=== PATIENT | female | born 1975 | race African-American/Black ===

== ENCOUNTER 2016-12-29 10:59 | Emergency (ER) | payer OTHER ==
[2016-12-29 11:07] VITALS: BP 150/64; TEMP 97.9; BMI 39.6
[2016-12-29 12:24] VITALS: PULSE 99
[2016-12-29] MEDS ORDERED: morphine CARPU-JECT 2 MG/1 ML DISP.SYRIN IVPUSH ONE ×2 (12:26→13:19)
[2016-12-29] MEDS ORDERED: SODIUM CHLORIDE 1,000 ML IV STA (12:27)
[2016-12-29] MEDS ORDERED: morphine CARPU-JECT 4 MG/1 ML DISP.SYRIN ONE (12:28)
[2016-12-29 12:32] LABS: BASOPHIL 0.4 % (0-2.0); EOSINOPHIL 0.3 % (0-4.5); MCH 28.1 pg (25.7-33.7); MCHC 32.1 g/dl (32.0-36.0); MEAN CELL VOLUME 87.6 fl (80-96); MEAN PLT VOLUME 9.4 fl (7.5-11.1); NEUTROPHILS 64.2 % (42.8-82.8); PLATELET COUNT 236 K/MM3 (134-434); RDW 17.4 % (11.6-15.6); WHITE BLOOD COUNT 9.2 K/mm3 (4.0-10.0)
--- NOTE | 2016-12-29 12:35 | PDOC ---
History of Present Illness - General Chief Complaint: Pain Stated Complaint: ABD PAIN Time Seen by Provider: 12/29/16 11:29 History Source: Patient Exam Limitations: No Limitations - History of Present Illness Travel History: No Initial Comments: 12/29/16 12:30 41-year-old female with no past medical history presents the ED with complaints of suprapubic pain for the past 2 days associated with vaginal bleeding with large clots. Patient states history of fibroids a few years ago requiring embolization but has not had any problems since. Patient states the past 5 months has been having vaginal spotting with no abdominal pain. Patient denies fever, chills, nausea, dizziness, shortness of breath on exertion, or edema. Timing/Duration: reports: getting worse Quality: reports: moderate, cramping Abdominal Pain Onset Location: reports: suprapubic Pain Radiation: reports: no radiation Activities at Onset: reports: none Aggravating Factors: improves with: None Alleviating Factors: improves with: None Past History - Past Medical History Allergies/Adverse Reactions: Allergies Allergy/AdvReac Type Severity Reaction Status Date / Time No Known Allergies Allergy Verified 12/29/16 11:07 Home Medications: Ambulatory Orders Cyclobenzaprine HCl [Flexeril -] 10 mg PO PRN 09/02/16 Metronidazole [Flagyl -] 500 mg PO DAILY #14 tablet 09/02/16 Oxycodone HCl/Acetaminophen [Percocet 5-325 mg Tablet] 1 - 2 tab PO Q6H PRN #12 tab MDD 4 12/29/16 Diabetes: Yes (BORDERLINE) - Surgical History Orthopedic Surgery: Yes (arthroscopy x3 brian knee and shoulder) - Reproductive History LMP Normal: No Is Patient Now?: No Therapeutic (s) & number: No - Immunization History Td Vaccination: (unknown) Immunization Up to Date: Yes - Psycho/Social/Smoking Cessation Hx Anxiety: No Suicidal Ideation: No Smoking Status: Yes Smoking History: Current some day smoker Years of Tobacco Use: 0 Have you smoked in the past 12 months: Yes Number of Cigarettes Smoked Daily: 2 Cigars Per Day: 0 Information on smoking cessation initiated: No 'Breaking Loose' booklet given: 07/20/16 Hx Alcohol Use: Yes (SOCIAL) Drug/Substance Use Hx: No Substance Use Type: None Hx Substance Use Treatment: No Patient Lives Alone: No Lives with/in: spouse/SO Review of Systems - Review of Systems Constitutional: No: Symptoms Reported HEENTM: No: Symptoms Reported Respiratory: No: Symptoms reported ABD/GI: Yes: Abdominal cramping : Yes: Discharge Musculoskeletal: No: Symptoms Reported Integumentary: No: Symptoms Reported Neurological: No: Symptoms reported Endocrine: No: Symptoms Reported Hematologic/Lymphatic: No: Symptoms Reported *Physical Exam - Vital Signs Last Vital Signs Temp Pulse Resp BP Pulse Ox 97.9 F 99 H 18 150/64 98 12/29/16 11:04 12/29/16 12:23 12/29/16 11:04 12/29/16 11:04 12/29/16 11:04 - Physical Exam General Appearance: Yes: Nourished, Appropriately Dressed. No: Apparent Distress HEENT: positive: EOMI, CRISS. negative: Pale Conjunctivae Neck: positive: Normal Thyroid, Supple Respiratory/Chest: positive: Lungs Clear, Normal Breath Sounds. negative: Respiratory Distress Cardiovascular: positive: Regular Rhythm, Regular Rate (99). negative: Murmur Female Pelvic Exam: positive: cervical os closed, vaginal bleeding (bright red blood with small clots). negative: adnexal tenderness Gastrointestinal/Abdominal: positive: Normal Bowel Sounds, Soft, Guarding (mild) , Tenderness (mid suprapubic). negative: Rebound Musculoskeletal: negative: CVA Tenderness Extremity: positive: Normal Capillary Refill. negative: Pedal Edema Integumentary: positive: Normal Color, Warm, Moist. negative: Pale Neurologic: positive: Motor Strength 5/5 (ambulatory) ED Treatment Course - LABORATORY CBC & Chemistry Diagram: 12/29/16 12:20 12/29/16 12:20 - RADIOLOGY Radiology Studies Ordered: Category Date Time Status PELVIC / BLADDER US [US] Stat Ultrasound 12/29/16 12:27 Ordered TRANSVAGINAL ULTRASOUND US [US] Stat Ultrasound 12/29/16 12:27 Ordered Medical Decision Making - Medical Decision Making 12/29/16 12:34 Patient with history of uterine fibroids presents with severe abdominal cramping associated large clots and bright red blood. Patient exam did have bright red blood with small clots. Patient had no CMT os closed. Patient with mild guarding to the mid suprapubic region. Patient ordered for urine, labs, ultrasound, analgesics, IV fluids IV access. 12/29/16 14:29 Laboratory Tests 12/29/16 12/29/16 12/29/16 12:20 12:20 12:20 WBC 9.2 Hgb 11.6 D Hct 36.3 D Neutrophils % 64.2 Sodium 142 Potassium 3.7 Chloride 105 Carbon Dioxide 26 Anion Gap 11 BUN 14 D Creatinine 0.6 Creat Clearance w eGFR > 60 Random Glucose 216 H D Calcium 9.2 Total Bilirubin 0.2 AST 9 L ALT 24 Serum , Qual Negative 12/29/16 14:30 Urine pending. Patient feeling better after receiving morphine. Ultrasound shows a fibroid uterus with thickened endometrium and a small right ovarian cyst. The largest fibroids measuring 2.8 x 1.7 x 2.6. The endometrial thickness is 13 mm. Patient will be discharged home with Percocet and told to follow-up with her COMMUNITY SUPPORT PROFESSIONAL. 12/29/16 14:42 Laboratory Tests 12/29/16 12:11 Urine Ketones Trace H Urine Blood 3+ H Urine Nitrite Negative Ur Leukocyte Esterase Negative *DC/Admit/Observation/Transfer Diagnosis at time of Disposition: Fibroids Qualifiers: Uterine leiomyoma location: intramural Qualified Code(s): D25.1 - Intramural leiomyoma of uterus - Discharge Dispostion Disposition: HOME Condition at time of disposition: Good - Prescriptions Prescriptions: Oxycodone HCl/Acetaminophen [Percocet 5-325 mg Tablet] 1 - 2 tab PO Q6H PRN #12 tab MDD 4 PRN Reason: Pain - Patient Instructions Printed Discharge Instructions: DI for Uterine Fibroids Additional Instructions: You need to follow-up with her COMMUNITY SUPPORT PROFESSIONAL to discuss today's visit which showed fibroids and a thickened endometrium. I will discharge you home with Percocet
[2016-12-29 12:56] LABS: ALBUMIN 3.6 g/dl (3.4-5.0); ANION GAP 11 (8-16); BILIRUBIN,TOTAL 0.2 mg/dL (0.2-1.0); CALCIUM 9.2 mg/dL (8.5-10.1); CO2 26 mmol/L (21-32); CREATININE 0.6 mg/dL (0.55-1.02); GLUCOSE,RANDOM 216 mg/dL (74-106); SGOT/AST 9 U/L (15-37); SGPT/ALT 24 U/L (12-78)
[2016-12-29 12:57] LABS: ALK PHOS 79 U/L (45-117)
[2016-12-29] MEDS ORDERED: morphine CARPU-JECT 2 MG/1 ML DISP.SYRIN ONE (13:20)
--- NOTE | 2016-12-29 13:29 | PDOC ---
*Physical Exam - Vital Signs Last Vital Signs Temp Pulse Resp BP Pulse Ox 97.9 F 99 H 18 150/64 98 12/29/16 11:04 12/29/16 12:23 12/29/16 11:04 12/29/16 11:04 12/29/16 11:04 ED Treatment Course - LABORATORY CBC & Chemistry Diagram: 12/29/16 12:20 12/29/16 12:20 - ADDITIONAL ORDERS Additional order review: Laboratory Results 12/29/16 12/29/16 12:20 12:20 Sodium 142 Potassium 3.7 Chloride 105 Carbon Dioxide 26 Anion Gap 11 BUN 14 D Creatinine 0.6 Creat Clearance w eGFR > 60 Random Glucose 216 H D Calcium 9.2 Total Bilirubin 0.2 AST 9 L ALT 24 Alkaline Phosphatase 79 Total Protein 7.0 Albumin 3.6 Serum , Qual Negative 12/29/16 12:20 RBC 4.14 D MCV 87.6 MCHC 32.1 RDW 17.4 H MPV 9.4 Neutrophils % 64.2 Lymphocytes % 30.2 D Monocytes % 4.9 Eosinophils % 0.3 D Basophils % 0.4 - Medications Given in the ED: ED Medications Discontinued Medications Generic Name Dose Route Start Last Admin Trade Name Freq PRN Reason Stop Dose Admin Sodium Chloride 1,000 mls @ 1,000 mls/hr 12/29/16 12:27 12/29/16 12:32 Normal Saline - IV 12/29/16 13:26 1,000 mls/hr ASDIR STA Administration Morphine Sulfate 4 mg 12/29/16 12:26 12/29/16 12:32 Morphine Injection - IVPUSH 12/29/16 12:27 4 mg ONCE ONE Administration Morphine Sulfate 2 mg 12/29/16 13:19 12/29/16 13:23 Morphine Injection - IVPUSH 12/29/16 13:20 2 mg ONCE ONE Administration Medical Decision Making - Medical Decision Making 12/29/16 13:29 41 yo F presenting to the ER s/p abdominal pain and vaginal bleeding Not Not anemic Pt seen by Midlevel Provider under my direct supervision I agree with plan as outlined by Midlevel Provider *DC/Admit/Observation/Transfer Diagnosis at time of Disposition: Fibroids - Discharge Dispostion Disposition: HOME Condition at time of disposition: Good - Prescriptions Prescriptions: Oxycodone HCl/Acetaminophen [Percocet 5-325 mg Tablet] 1 - 2 tab PO Q6H PRN #12 tab MDD 4 PRN Reason: Pain - Patient Instructions Printed Discharge Instructions: DI for Uterine Fibroids Additional Instructions: You need to follow-up with her LIFE SKILLS EDUCATOR to discuss today's visit which showed fibroids and a thickened endometrium. I will discharge you home with Percocet
[2016-12-29 14:29] LABS: URINE APPEARANCE TURBID; URINE BILIRUBIN NEGATIVE (NEGATIVE); URINE GLUCOSE (UA) 1+ (NEGATIVE); URINE KETONE TRACE (NEGATIVE); URINE LEUK ESTERASE NEGATIVE (NEGATIVE); URINE NITRITE NEGATIVE (NEGATIVE); URINE UROBILINOGEN NEGATIVE E.U./dl (0.2-1.0)
[2016-12-29 14:37] LABS: URINE BLOOD 3+ (NEGATIVE); URINE COLOR RED; URINE PROTEIN 2+ (NEGATIVE)
[2016-12-29 14:47] LABS: URINE RBC TOO MANY TO COUNT /hpf (0-3)
== END 2016-12-29 14:50 | disposition home or self-care (01) ==
LOC: JER 10:59
PROC: 3E033NZ Introduction of Analgesics, Hypnotics, Sedatives into Peripheral Vein, Percutaneous Approach (ICD-10-PCS; principal; 2016-12-29)
DX: D25.1 Intramural leiomyoma of uterus (principal); N83.291 Other ovarian cyst, right side; E11.9 Type 2 diabetes mellitus without complications; F17.210 Nicotine dependence, cigarettes, uncomplicated
CPT/HCPCS: 36415; 76830-TC; 76856-TC; 80053; 81003; 81015; 84703; 85025; 96374; 96376; 99283-25

== ENCOUNTER 2018-06-29 06:58 | Emergency (ER) | payer SELFPAY ==
[2018-06-29 07:40] VITALS: BP 130/89; PULSE 78; TEMP 97.7; BMI 33.6
--- NOTE | 2018-06-29 08:34 | PDOC ---
History of Present Illness - General Chief Complaint: Burn Stated Complaint: L FOOT BURN Time Seen by Provider: 06/29/18 08:28 History Source: Patient Exam Limitations: Clinical Condition - History of Present Illness Initial Comments: 06/29/18 08:29 Patient with no sig Past medical history presenting for evaluation status post spell and how water on the top of left foot this morning. Patient also requests HIV testing. Denies exposure to any blood products or HIV. Denies any other symptoms 06/29/18 08:32 Timing/Duration: 4-6 hours Past History - Past Medical History Allergies/Adverse Reactions: Allergies Allergy/AdvReac Type Severity Reaction Status Date / Time No Known Allergies Allergy Verified 06/29/18 07:37 Home Medications: Ambulatory Orders Ibuprofen 600 mg PO Q8H PRN #12 tablet 06/29/18 Silver Sulfadiazine [Silvadene] 1 applic TP BID PRN #1 cream..g. 06/29/18 COPD: No Diabetes: Yes (BORDERLINE) - Surgical History Orthopedic Surgery: Yes (arthroscopy x3 brian knee and shoulder) - Reproductive History Therapeutic (s) & number: No - Immunization History Td Vaccination: (unknown) Immunization Up to Date: Yes - Suicide/Smoking/Psychosocial Hx Smoking Status: Yes Smoking History: Current some day smoker Years of Tobacco Use: 0 Have you smoked in the past 12 months: Yes Number of Cigarettes Smoked Daily: 2 Cigars Per Day: 0 Information on smoking cessation initiated: No 'Breaking Loose' booklet given: 07/20/16 Hx Alcohol Use: Yes (SOCIAL) Drug/Substance Use Hx: No Substance Use Type: None Hx Substance Use Treatment: No Review of Systems - Review of Systems Able to Perform ROS?: Yes Is the patient limited Uzbek proficient: No Constitutional: No: Chills, Diaphoresis, Fever, Loss of Appetite, Malaise, Night Sweats, Weakness, Weight Stable, Unintentional Wgt. Loss, Unexplained wgt Loss, Other HEENTM: No: Eye Pain, Blurred Vision, Tearing, Recent change in vision, Double Vision, Cataracts, Ear Pain, Ocular Prothesis, Ear Discharge, Nose Pain, Nose Congestion, Tinnitus, Nose Bleeding, Hearing Loss, Throat Pain, Throat Swelling , Mouth Pain, Dental Problems, Difficulty Swallowing, Mouth Swelling, Other Respiratory: No: Cough, Orthopnea, Shortness of Breath, SOB with Exertion, SOB at Rest, Stridor, Wheezing, Productive cough, Hemoptysis, Other Cardiac (ROS): No: Chest Pain, Edema, Irregular Heart Rate, Lightheadedness, Palpitations, Syncope, Chest Tightness, Other ABD/GI: No: Abdominal Distended, Abd. Pain w/ defecation, Blood Streaked Bowels , Constipated, Diarrhea, Difficulty Swallowing, Nausea, Poor Appetite, Poor Fluid Intake, Rectal Bleeding, Vomiting, Indigestion, Abdominal cramping, Tarry Stools, Other Musculoskeletal: No: Back Pain, Gout, Joint Pain, Joint Swelling, Muscle Pain, Muscle Weakness, Neck Pain, Joint Stiffness, Other Integumentary: Yes: Erythema (left foot) All Other Systems: Reviewed and Negative *Physical Exam - Vital Signs Last Vital Signs Temp Pulse Resp BP Pulse Ox 97.7 F 78 18 130/89 100 06/29/18 07:38 06/29/18 07:38 06/29/18 07:38 06/29/18 07:38 06/29/18 07:38 - Physical Exam Comments: 06/29/18 08:32 GENERAL: Well developed, well nourished. Awake and alert. No acute distress. HEENT: Normocephalic, atraumatic. PERRLA, EOMI. No conjunctival pallor. Sclera are non- icteric. Moist mucous membranes. Oropharynx is clear. NECK: Supple. Full ROM. No JVD. Carotid pulses 2+ and symmetric, without bruits. No thyromegaly. No lymphadenopathy. CARDIOVASCULAR: Regular rate and rhythm. No murmurs, rubs, or gallops. Distal pulses are 2+ and symmetric. PULMONARY: No evidence of respiratory distress. Lungs clear to auscultation bilaterally. No wheezing, rales or rhonchi. ABDOMINAL: Soft. Non-tender. Non-distended. No rebound or guarding. No organomegaly. Normoactive bowel sounds. MUSCULOSKELETAL Normal range of motion at all joints. No bony deformities or tenderness. No CVA tenderness. EXTREMITIES: No cyanosis. No clubbing. No edema. No calf tenderness. SKIN: Warm and dry. Normal capillary refill. No rashes. No jaundice. NEUROLOGICAL: Alert, awake, appropriate. Cranial nerves 2-12 intact. No deficits to light touch and temperature in face, upper extremities and lower extremities. No motor deficits in the in face, upper extremities and lower extremities. Normoreflexic in the upper and lower extremities. Normal speech. Toes are down- going bilaterally. Gait is normal without ataxia. PSYCHIATRIC: Cooperative. Good eye contact. Appropriate mood and affect. General Appearance: Yes: Nourished, Appropriately Dressed. No: Apparent Distress Medical Decision Making - Medical Decision Making 06/29/18 08:32 Patient with no sig Past medical history presenting for evaluation s/p water burn to left foot since this morning. Exam of the foot shows no evidence of burn to the foot. Mild small area of erythema on dorsum of right foot. No pain wound or blisters. Patient also requested hiv testing. HIV labs ordered. Patient was discharged home on Silvadene cream for burn *DC/Admit/Observation/Transfer Diagnosis at time of Disposition: Encounter for HIV (human immunodeficiency virus) test First degree burn of left foot Qualifiers: Encounter type: initial encounter Qualified Code(s): T25.122A - Burn of first degree of left foot, initial encounter - Discharge Dispostion Disposition: HOME Condition at time of disposition: Stable Decision to Admit order: No - Prescriptions Prescriptions: Ibuprofen 600 mg PO Q8H PRN #12 tablet PRN Reason: pain Silver Sulfadiazine [Silvadene] 1 applic TP BID PRN #1 cream..g. PRN Reason: burn - Referrals Referrals: Ho Alba MD [Non Staff, Medical] - - Patient Instructions Printed Discharge Instructions: How to Take Care of a Burn - Post Discharge Activity
== END 2018-06-29 10:52 | disposition home or self-care (01) ==
LOC: JERFT 06:58 → JER 06:58 → JERFT 10:45
PROC: 2W2TX4Z Dressing of Left Foot using Bandage (ICD-10-PCS; principal; 2018-06-29)
DX: T25.122A Burn of first degree of left foot, initial encounter (principal); T31.0 Burns involving less than 10% of body surface; X11.8XXA Contact with other hot tap-water, initial encounter; Y93.89 Activity, other specified; Y92.512 Supermarket, store or market as the place of occurrence of the external cause; Y99.0 Civilian activity done for income or pay
CPT/HCPCS: 36415; 87389; 99281-25

== ENCOUNTER 2018-07-11 10:51 | Emergency (ER) | payer SELFPAY ==
[2018-07-11 10:58] VITALS: BP 127/76; PULSE 94; TEMP 100; BMI 29.2
--- NOTE | 2018-07-11 11:41 | PDOC ---
Attending Attestation - HPI HPI: The patient is a 42 year old female with PMHx of HTN, diabetes, prior uterine fibroid embolization, prior UTIs, who presents with 5 days of flu-like symptoms. Patient complains of fever, chills, nausea, vomiting, and diarrhea. She states that her symptoms subsided on Wednesday and came back today around 3 am. She is currently complaining of mainly chills and right sided flank pain. She states that this flank pain feels similar to her last UTI. Denies any dysuria or hematuria. PCP: Nalini Moser <Shala Balderas - Last Filed: 07/11/18 12:13> - Resident Resident Name: Gianluca Ordaz - ED Attending Attestation I have performed the following: I have examined & evaluated the patient, The case was reviewed & discussed with the resident, I agree w/resident's findings & plan, Exceptions are as noted - Physicial Exam PE: 07/11/18 15:51 Vitals: Triage Vital signs reviewed General Appearance: no acute distress, well nourished well developed, Head: Atraumatic, Neck: Supple;No Nucal rigidity Chest Wall: Nontender Cardiac: Regular rate and rhythym, no murmurs, no rubs, no gallops, Lungs: Clear to auscultation bilateral, good air movement bilaterally, Abdomen: Soft, non distended, normal bowel sounds, non tender to palpation Musculoskeletal: Mild right CVA tenderness to palpation Extremities: Full range of motion to all extremities, no cyanosis, clubbing, or edema Skin: Warm and dry, no rashes or lesions, no rash, no petechiae Psych: normal mood, normal affect - Medical Decision Making 07/11/18 15:54 42 years old past medical history significant for hypertension diabetes presents to the ED with 5 day history of flulike symptoms fever chills nausea vomiting diarrhea symptoms then improved on Wednesday and yesterday she began complaining of right-sided flank discomfort and dysuria Her urinalysis was positive, her laboratory analysis was otherwise unremarkable we will treat her with a 14 day course of Keflex for possible early pyelo Findings, need for follow-up and strict return instructions discussed with patient. <Pedro Vasquez - Last Filed: 07/11/18 15:55> Heart Score/ECG Review - ECG Impressions Comment:: 07/11/18 15:54 EKG performed at 1225 demonstrates normal sinus rhythm no ST elevations T-wave inversions. Interpreted by me. <Pedro Vasquez - Last Filed: 07/11/18 15:55>
[2018-07-11] MEDS ORDERED: ACETAMINOPHEN 1000 MG/100 ML VIAL (NON FORMULARY) IVPB ONE (11:45)
[2018-07-11] MEDS ORDERED: SODIUM CHLORIDE 0.9% 500 ML INFUS.BAG IV ONE (11:45)
[2018-07-11] MEDS ORDERED: ACETAMINOPHEN INJECTION 100 ML IVPB ONE (11:53)
[2018-07-11 12:13] LABS: BASO % 0.2 % (0-2.0); EOS % 0.4 % (0-4.5); HEMATOCRIT 31.9 % (32.4-45.2); HEMOGLOBIN 10.4 GM/dL (10.7-15.3); LYMPH % 15.1 % (8-40); MCH 27.3 pg (25.7-33.7); MCHC 32.6 g/dl (32.0-36.0); MEAN PLT VOLUME 9.5 fl (7.5-11.1); MONO % 6.3 % (3.8-10.2); PLATELET COUNT 250 K/MM3 (134-434); RDW 16.5 % (11.6-15.6)
[2018-07-11 12:41] LABS: ALBUMIN 3.3 g/dl (3.4-5.0); ALK PHOS 64 U/L (45-117); ANION GAP 10 MMOL/L (8-16); BLOOD UREA NITROGEN 10 mg/dL (7-18); CALCIUM 8.6 mg/dL (8.5-10.1); CHLORIDE 103 mmol/L (98-107); CO2 31 mmol/L (21-32); CREATININE 0.6 mg/dL (0.55-1.3); GLUCOSE,RANDOM 110 mg/dL (74-106); POTASSIUM 3.4 mmol/L (3.5-5.1); SGOT/AST 13 U/L (15-37); SGPT/ALT 25 U/L (13-61); SODIUM 144 mmol/L (136-145)
[2018-07-11 12:42] LABS: BILIRUBIN,TOTAL 0.4 mg/dL (0.2-1.0); TOT PROT 7.2 g/dl (6.4-8.2)
[2018-07-11 13:31] LABS: URINE APPEARANCE SLCLOUDY; URINE BILIRUBIN NEGATIVE (<2.0 mg/dL); URINE COLOR YELLOW; URINE GLUCOSE (UA) NEGATIVE (NEGATIVE); URINE KETONE NEGATIVE (NEGATIVE); URINE LEUK ESTERASE TRACE (NEGATIVE); URINE NITRITE POSITIVE (NEGATIVE); URINE UROBILINOGEN NEGATIVE mg/dL (0.2-1.0)
[2018-07-11 13:32] LABS: URINE PROTEIN 1+ (NEGATIVE)
[2018-07-11 13:37] LABS: EPI CELLS MODERATE /HPF (FEW); URINE BACTERIA RARE /hpf (NONE SEEN); URINE MUCUS RARE
[2018-07-11] MEDS ORDERED: KETOROLAC TROMETHAMINE 30 MG/1 ML VIAL IVPUSH ONE (13:49)
--- NOTE | 2018-07-11 14:22 | PDOC ---
History of Present Illness - General Chief Complaint: Respiratory Stated Complaint: FLU LIKE SYPTOMS Time Seen by Provider: 07/11/18 11:37 - History of Present Illness Initial Comments: The patient is a 42F w/ a history of pyelonephritis who presents with 5 days of fevers/chills, myalgias, as well as V. The patient reports she last vomited on . She states he symptoms worsened through Wednesday. Then got better on Wednesday and then recurred today. She states she also has related R flank pain. Denies dysuria and hematuria. The patient reports similar symptoms in the pas when she had pyelonephritis Denies GARVIN, vision changes, chest pain, SOB, abdominal pain, changes in urination or BMs. 07/11/18 14:19 Past History - Past Medical History Allergies/Adverse Reactions: Allergies Allergy/AdvReac Type Severity Reaction Status Date / Time No Known Allergies Allergy Verified 07/11/18 10:55 Home Medications: Ambulatory Orders Ibuprofen 600 mg PO Q8H PRN #12 tablet 06/29/18 Silver Sulfadiazine [Silvadene] 1 applic TP BID PRN #1 cream..g. 06/29/18 Cephalexin Monohydrate [Keflex -] 500 mg PO TID 14 Days #42 capsule 07/11/18 COPD: No Diabetes: Yes (BORDERLINE) - Surgical History Orthopedic Surgery: Yes (arthroscopy x3 brian knee and shoulder) - Reproductive History Therapeutic (s) & number: No - Immunization History Td Vaccination: (unknown) Immunization Up to Date: Yes - Suicide/Smoking/Psychosocial Hx Smoking Status: Yes Smoking History: Current some day smoker Years of Tobacco Use: 0 Have you smoked in the past 12 months: Yes Number of Cigarettes Smoked Daily: 5 Cigars Per Day: 0 Information on smoking cessation initiated: Yes 'Breaking Loose' booklet given: 07/11/18 Hx Alcohol Use: No Drug/Substance Use Hx: No Substance Use Type: None Hx Substance Use Treatment: No *Physical Exam - Vital Signs Last Vital Signs Temp Pulse Resp BP Pulse Ox 100 F H 94 H 20 127/76 99 07/11/18 10:55 07/11/18 10:55 07/11/18 10:55 07/11/18 10:55 07/11/18 11:44 ED Treatment Course - LABORATORY CBC & Chemistry Diagram: 07/11/18 11:55 07/11/18 11:55 - ADDITIONAL ORDERS Additional order review: Laboratory Results 07/11/18 07/11/18 07/11/18 13:18 13:18 11:55 Sodium Potassium Chloride Carbon Dioxide Anion Gap BUN Creatinine Creat Clearance w eGFR Random Glucose Lactic Acid 0.5 Calcium Total Bilirubin AST ALT Alkaline Phosphatase Total Protein Albumin Urine Color Yellow Urine Appearance Slcloudy Urine pH 6.0 Ur Specific [place] 1.019 Urine Protein 1+ H Urine Glucose (UA) Negative Urine Ketones Negative Urine Blood 1+ H Urine Nitrite Positive Urine Bilirubin Negative Urine Urobilinogen Negative Ur Leukocyte Esterase Trace Urine WBC (Auto) 32 Urine RBC (Auto) 5 Ur Epithelial Cells Moderate Urine Bacteria Rare Urine Mucus Rare Urine HCG, Qual Negative 07/11/18 11:55 Sodium 144 Potassium 3.4 L Chloride 103 Carbon Dioxide 31 Anion Gap 10 BUN 10 Creatinine 0.6 Creat Clearance w eGFR > 60 Random Glucose 110 H Lactic Acid Calcium 8.6 Total Bilirubin 0.4 AST 13 L ALT 25 Alkaline Phosphatase 64 Total Protein 7.2 Albumin 3.3 L Urine Color Urine Appearance Urine pH Ur Specific [place] Urine Protein Urine Glucose (UA) Urine Ketones Urine Blood Urine Nitrite Urine Bilirubin Urine Urobilinogen Ur Leukocyte Esterase Urine WBC (Auto) Urine RBC (Auto) Ur Epithelial Cells Urine Bacteria Urine Mucus Urine HCG, Qual 07/11/18 11:55 RBC 3.80 MCV 84.0 MCHC 32.6 RDW 16.5 H MPV 9.5 Neutrophils % 78.0 D Lymphocytes % 15.1 D Monocytes % 6.3 Eosinophils % 0.4 Basophils % 0.2 - RADIOLOGY Radiology Studies Ordered: Category Date Time Status CHEST X-RAY PORTABLE* [RAD] Stat Radiology 07/11/18 11:43 Completed - Medications Given in the ED: ED Medications Discontinued Medications Generic Name Dose Route Start Last Admin Trade Name Freq PRN Reason Stop Dose Admin Acetaminophen 1,000 mg 07/11/18 11:45 07/11/18 12:17 Ofirmev Injection - IVPB 07/11/18 11:46 1,000 mg ONCE ONE Administration Sodium Chloride 1,000 ml 07/11/18 11:45 07/11/18 12:16 Normal Saline - IV 07/11/18 11:46 1,000 ml ONCE ONE Administration Medical Decision Making - Medical Decision Making Patient with UA concerning for UTI No leukocytosis 07/11/18 14:22 *DC/Admit/Observation/Transfer Diagnosis at time of Disposition: UTI (urinary tract infection) Qualifiers: Urinary tract infection type: acute cystitis Hematuria presence: without hematuria Qualified Code(s): N30.00 - Acute cystitis without hematuria - Discharge Dispostion Disposition: HOME Condition at time of disposition: Improved Decision to Admit order: No - Referrals Referrals: Nalini Moser MD [Primary Care Provider] - - Patient Instructions Printed Discharge Instructions: DI for Urinary Tract Infection (UTI) Additional Instructions: You were seen in the Emergency Department for a Urinary Tract infection. You were sent an antibiotic to your pharmacy that you specified. Please take as directed. Please review the handouts provided at discharge. Please follow up with your primary care physician within the next 1-3 days. Return to the Emergency Department if you develop fevers, worsening symptoms, or new concerning symptoms. - Post Discharge Activity Forms/Work/School Notes: Back to Work
--- NOTE | 2018-07-11 14:26 | EKG ---
Test Reason : Blood Pressure : / mmHG Vent. Rate : 087 BPM Atrial Rate : 087 BPM P-R Int : 178 ms QRS Dur : 080 ms QT Int : 368 ms P-R-T Axes : 038 059 030 degrees QTc Int : 442 ms NORMAL SINUS RHYTHM NORMAL ECG NO PREVIOUS ECGS AVAILABLE Confirmed by ALEX HERCULES MD ([id number]) on 07/11/2018 2:26:21 PM Referred By: Confirmed By:ALEX HERCULES MD
[2018-07-11] MEDS ORDERED: KETOROLAC TROMETHAMINE 30 MG/1 ML VIAL ONE (14:48)
== END 2018-07-11 15:05 | disposition home or self-care (01) ==
LOC: JER 10:51
PROC: 3E0337Z Introduction of Electrolytic and Water Balance Substance into Peripheral Vein, Percutaneous Approach (ICD-10-PCS; principal; 2018-07-11)
PROC: 3E033NZ Introduction of Analgesics, Hypnotics, Sedatives into Peripheral Vein, Percutaneous Approach (ICD-10-PCS; 2018-07-11)
DX: N30.00 Acute cystitis without hematuria (principal); R73.03 Prediabetes; F17.210 Nicotine dependence, cigarettes, uncomplicated
CPT/HCPCS: 36415; 71045-TC-FY; 80053; 81003; 81015; 83605; 84703; 85025; 87086; 87186; 93005; 93010; 99283-25; J0131

== ENCOUNTER 2023-12-23 09:37 | Emergency (ER) | payer OTHER ==
[2023-12-23 09:51] VITALS: BMI 41.0
[2023-12-23] MEDS ORDERED: ACETAMINOPHEN INJECTION 100 ML IVPB ONE (10:12)
[2023-12-23] MEDS: ACETAMINOPHEN 1000 MG/100 ML BAG IVPB ONE (10:41)
[2023-12-23] MEDS: SODIUM CHLORIDE 1,000 ML IV STA (10:41)
[2023-12-23] MEDS ORDERED: morphine SULFATE 4 MG/ML VIAL ONE (10:46)
[2023-12-23] MEDS: morphine CARPU-JECT 4 MG/1 ML DISP.SYRIN IVPUSH ONE (10:48)
[2023-12-23 10:53] LABS: BASO % 0.7 % (0-2.0); EOS % 1.5 % (0-4.5); HEMATOCRIT 38.5 % (32.4-45.2); HEMOGLOBIN 12.3 GM/dL (10.7-15.3); LYMPH % 29.1 % (8-40); MCH 27.2 pg (25.7-33.7); MEAN CELL VOLUME 84.9 fl (80-96); MEAN PLT VOLUME 10.3 fl (7.5-11.1); MONO % 7.1 % (3.8-10.2); NEUT % 61.6 % (42.8-82.8); PLATELET COUNT 161 10^3/uL (134-434); RBC 4.53 M/mm3 (3.60-5.2); RDW 16.7 % (11.6-15.6); WHITE BLOOD COUNT 5.9 K/mm3 (4.0-10.0)
[2023-12-23 11:12] LABS: POTASSIUM 3.3 mmol/L (3.5-5.1)
[2023-12-23 11:15] LABS: ALBUMIN 3.7 g/dl (3.4-5.0); CALCIUM 9.5 mg/dL (8.5-10.1)
[2023-12-23 11:16] LABS: BLOOD UREA NITROGEN 16.7 mg/dL (7-18); MAGNESIUM 1.6 mg/dL (1.8-2.4)
[2023-12-23 11:18] LABS: BILIRUBIN,DIRECT 0.2 mg/dL (0.0-0.2); CREATININE 0.7 mg/dL (0.55-1.3)
[2023-12-23 11:20] LABS: BILIRUBIN,TOTAL 0.8 mg/dL (0.2-1); TOT PROT 7.7 g/dl (6.4-8.2)
[2023-12-23] MEDS ORDERED: POTASSIUM CHLORIDE ORAL LIQUID 20 MEQ/15 ML ONE (15:01)
[2023-12-23] MEDS ORDERED: MAGNESIUM SULFATE IN WATER 2 GM/50 ML IVPB IVPB ONE (15:02)
[2023-12-23] MEDS: POTASSIUM CHLORIDE ORAL LIQUID 20 MEQ/15 ML PO ONE (15:09)
[2023-12-23 15:16] LABS: PH,URINE 5.5 (5.0-8.0); URINE APPEARANCE CLOUDY; URINE BILIRUBIN NEGATIVE (NEGATIVE); URINE COLOR YELLOW; URINE GLUCOSE (UA) NEGATIVE (NEGATIVE); URINE KETONE NEGATIVE (NEGATIVE); URINE LEUK ESTERASE NEGATIVE (NEGATIVE); URINE NITRITE NEGATIVE (NEGATIVE); URINE PROTEIN NEGATIVE (NEGATIVE)
[2023-12-23 15:28] VITALS: BP 113/76; PULSE 83; RESP 20; TEMP 98
[2023-12-23] MEDS: MAGNESIUM SULF 50% (8.12 MEQ/2 ML-1 GM VIAL) IVPB ONE (15:34)
[2023-12-23] MEDS: POTASSIUM CHLORIDE TABS 20 MEQ TABLET.ER (FP) PO ONE (15:34)
[2023-12-23] MEDS: MAGNESIUM OXIDE 400 MG TABLET (FP) PO ONE (15:35)
== END 2023-12-23 15:35 | disposition home or self-care (01) ==
LOC: JER 09:37
PROC: 3E033NZ Introduction of Analgesics, Hypnotics, Sedatives into Peripheral Vein, Percutaneous Approach (ICD-10-PCS; principal; 2023-12-23)
PROC: 3E033GC Introduction of Other Therapeutic Substance into Peripheral Vein, Percutaneous Approach (ICD-10-PCS; 2023-12-23)
PROC: 3E0337Z Introduction of Electrolytic and Water Balance Substance into Peripheral Vein, Percutaneous Approach (ICD-10-PCS; 2023-12-23)
DX: R10.31 Right lower quadrant pain (principal); R11.0 Nausea; R00.0 Tachycardia, unspecified; R63.0 Anorexia; D25.9 Leiomyoma of uterus, unspecified; K42.9 Umbilical hernia without obstruction or gangrene
CPT/HCPCS: 36415; 74177-TC; 76830-TC; 80053; 81003; 82248; 83605; 83690; 83735; 84703; 85025; 87086; 99285-25; J0131; Q9967

== ENCOUNTER 2024-01-05 22:56 | Emergency (ER) | payer OTHER ==
[2024-01-05 23:02] VITALS: BP 118/79; PULSE 99; RESP 20; TEMP 97.8; BMI 42.0
== END 2024-01-06 00:47 | disposition left against medical advice (07) ==
LOC: JERFT 22:56 → JER 22:56
DX: Z53.21 Procedure and treatment not carried out due to patient leaving prior to being seen by health care provider (principal)
CPT/HCPCS: 99281-25

== ENCOUNTER 2024-01-06 12:30 | Emergency (ER) | payer OTHER ==
[2024-01-06 12:37] VITALS: BP 122/77; PULSE 99; RESP 19; TEMP 98.6; BMI 43.4
[2024-01-06] MEDS ORDERED: KETOROLAC TROMETHAMINE 30 MG/1 ML VIAL ONE (13:08)
[2024-01-06] MEDS ORDERED: ACETAMINOPHEN 650 MG/20.3 ML ORAL SOLUTION (CUPS) ONE (13:08)
[2024-01-06] MEDS ORDERED: LIDOCAINE 4% PATCH TP ONE (13:08)
[2024-01-06] MEDS: LIDOCAINE 4% PATCH TP ONE (13:19)
[2024-01-06] MEDS: KETOROLAC TROMETHAMINE 30 MG/1 ML VIAL IM ONE (13:19)
[2024-01-06] MEDS: ACETAMINOPHEN 650 MG/20.3 ML ORAL SOLUTION (CUPS) PO ONE (13:19)
[2024-01-06] MEDS ORDERED: diazePAM 5 MG TABLET ONE (13:21)
[2024-01-06] MEDS: diazePAM 5 MG TABLET PO ONE (13:44)
[2024-01-06] MEDS ORDERED: LIDOCAINE PATCH REMOVAL MC SCH (22:00)
== END 2024-01-06 15:41 | disposition home or self-care (01) ==
LOC: JERFT 12:30 → JER 12:30
PROC: 3E0233Z Introduction of Anti-inflammatory into Muscle, Percutaneous Approach (ICD-10-PCS; principal; 2024-01-06)
DX: M54.41 Lumbago with sciatica, right side (principal); G89.29 Other chronic pain; M25.551 Pain in right hip; M25.552 Pain in left hip; R20.0 Anesthesia of skin
CPT/HCPCS: 72131-TC; 72192-TC; 99284-25

== ENCOUNTER 2024-04-07 04:25 | Day surgery (SDC) | payer OTHER ==
[2024-04-04 12:27] VITALS: BMI 40.7
[2024-04-07] MEDS ORDERED: BUPIVACAINE HCL/PF 0.75% 10 ML VIAL ONE (07:26)
[2024-04-07] MEDS ORDERED: LIDOCAINE HCL/PF 1% SDV 5ML VIAL ONE (07:26)
[2024-04-07] MEDS ORDERED: ACETAMINOPHEN 500 MG TABLET (FP) PO PRN (09:33)
[2024-04-07 12:14] VITALS: RESP 18
[2024-04-07] MEDS: LIDOCAINE HCL 1% PRESERVATIVE FREE - 30ML VIAL IJ ONE (12:59)
[2024-04-07] MEDS: BUPIVACAINE HCL/PF 0.75% 10 ML VIAL NR ONE ×2 (13:00)
[2024-04-07 13:37] VITALS: BP 143/93; PULSE 83; TEMP 97.8
== END 2024-04-07 13:49 | disposition home or self-care (01) ==
LOC: JASU-SURG 04:25
PROVIDERS: ATTEND Pain Medicine Pain Medicine
PROC: 3E0T33Z Introduction of Anti-inflammatory into Peripheral Nerves and Plexi, Percutaneous Approach (ICD-10-PCS; 2024-04-07)
PROC: 3E0T3BZ Introduction of Anesthetic Agent into Peripheral Nerves and Plexi, Percutaneous Approach (ICD-10-PCS; principal; 2024-04-07 11:30)
DX: M47.816 Spondylosis without myelopathy or radiculopathy, lumbar region (principal)
CPT/HCPCS: 76000-TC-FY

== ENCOUNTER 2024-05-07 16:13 | Emergency (ER) | payer OTHER ==
[2024-05-07 16:26] VITALS: BP 160/85; PULSE 90; RESP 18; BMI 38.9
[2024-05-07] MEDS ORDERED: ACETAMINOPHEN 500 MG TABLET (FP) ONE (16:43)
[2024-05-07] MEDS ORDERED: KETOROLAC TROMETHAMINE 30 MG/1 ML VIAL ONE (16:43)
[2024-05-07] MEDS ORDERED: MAG HYDROX/AL HYDROX/SIMETH 30 ML UNIT-DOSE CUP ONE (16:44)
[2024-05-07] MEDS: KETOROLAC TROMETHAMINE 30 MG/1 ML VIAL IM ONE (16:52)
[2024-05-07] MEDS: ACETAMINOPHEN 500 MG TABLET (FP) PO ONE (16:52)
[2024-05-07] MEDS: MAG HYDROX/ALH/SMC/DPHA/LIDO 240 ML MOUTHWASH MM ONE (16:53)
[2024-05-07] MEDS: MAG HYDROX/AL HYDROX/SIMETH 30 ML UNIT-DOSE CUP PO ONE (17:08)
[2024-05-07] MEDS ORDERED: DEXAMETHASONE SOD PHOSPHATE 10 MG/1 ML VIAL ONE (17:14)
[2024-05-07] MEDS: DEXAMETHASONE SOD PHOSPHATE 10 MG/1 ML VIAL IM ONE (17:19)
== END 2024-05-07 17:26 | disposition home or self-care (01) ==
LOC: JERFT 16:13
PROC: 3E023GC Introduction of Other Therapeutic Substance into Muscle, Percutaneous Approach (ICD-10-PCS; principal; 2024-05-07)
PROC: 3E0133Z Introduction of Anti-inflammatory into Subcutaneous Tissue, Percutaneous Approach (ICD-10-PCS; 2024-05-07)
DX: J02.9 Acute pharyngitis, unspecified (principal)
CPT/HCPCS: 99284-25; J1100

== ENCOUNTER 2024-05-09 20:43 | Emergency (ER) | payer OTHER ==
[2024-05-09 20:56] VITALS: BP 156/94; PULSE 100; RESP 20; TEMP 98; BMI 38.9
[2024-05-09] MEDS ORDERED: LIDOCAINE VISCOUS 2% ORAL/TOP 15 ML UNIT-DOSE CUP ONE (21:37)
[2024-05-09] MEDS: LIDOCAINE VISCOUS 2% ORAL/TOP 15 ML UNIT-DOSE CUP MM ONE (21:42)
[2024-05-09] MEDS ORDERED: KETOROLAC TROMETHAMINE 30 MG/1 ML VIAL ONE (22:51)
[2024-05-09] MEDS: KETOROLAC TROMETHAMINE 30 MG/1 ML VIAL IM ONE (23:11)
== END 2024-05-10 00:47 | disposition home or self-care (01) ==
LOC: JER 20:43
DX: R07.0 Pain in throat (principal)
CPT/HCPCS: 70490-TC; 99284-25

== ENCOUNTER 2024-05-19 05:01 | Day surgery (SDC) | payer OTHER ==
[2024-05-17 12:04] VITALS: BMI 40.7
[2024-05-19] MEDS ORDERED: BUPIVACAINE HCL/PF 0.5% (5MG/ML) 10 ML VIAL ONE (07:14)
[2024-05-19] MEDS ORDERED: TRIAMCINOLONE ACET 40MG/1ML VIAL ONE (07:14)
[2024-05-19] MEDS ORDERED: LIDOCAINE HCL/PF 1% SDV 5ML VIAL ONE (07:15)
[2024-05-19] MEDS ORDERED: ACETAMINOPHEN 500 MG TABLET (FP) PO PRN (11:49)
[2024-05-19] MEDS ORDERED: PROMETHAZINE HCL 25 MG/1 ML VIAL IVPB PRN (12:48)
[2024-05-19] MEDS ORDERED: ONDANSETRON 4 MG/2 ML VIAL IVPUSH PRN (12:48)
[2024-05-19] MEDS ORDERED: LACTATED RINGERS SOLUTION 1,000 ML IV SCH (13:00)
[2024-05-19] MEDS ORDERED: MIDAZOLAM HCL 2 MG/2 ML SINGLE DOSE VIAL ONE (13:02)
[2024-05-19] MEDS: TRIAMCINOLONE ACETONIDE 40 MG/ML 10 ML VIAL IJ ONE (13:14)
[2024-05-19] MEDS: IOHEXOL 180 MG/1 ML ML IJ ONE (13:14)
[2024-05-19] MEDS: LIDOCAINE HCL 1% PRESERVATIVE FREE - 30ML VIAL IJ ONE (13:14)
[2024-05-19] MEDS: BUPIVACAINE HCL/PF 0.5% (5 MG/ML) 30 ML VIAL IJ ONE (13:15)
[2024-05-19 13:36] VITALS: RESP 18
[2024-05-19 14:26] VITALS: BP 126/73; PULSE 81; TEMP 97.7
== END 2024-05-19 14:31 | disposition home or self-care (01) ==
LOC: JASU-SURG 05:01
PROVIDERS: ATTEND Pain Medicine Pain Medicine
PROC: 3E0U3BZ Introduction of Anesthetic Agent into Joints, Percutaneous Approach (ICD-10-PCS; 2024-05-19)
PROC: 3E0U33Z Introduction of Anti-inflammatory into Joints, Percutaneous Approach (ICD-10-PCS; principal; 2024-05-19 12:15)
DX: M53.3 Sacrococcygeal disorders, not elsewhere classified (principal)
CPT/HCPCS: 76000-TC-FY; 82962

== ENCOUNTER 2024-10-03 06:02 | Day surgery (SDC) | payer OTHER ==
[2024-09-29 14:24] VITALS: BMI 38.9
[2024-10-03] MEDS ORDERED: ROPIVACAINE HCL/PF 100 MG/20 ML VIAL ONE (07:26)
[2024-10-03] MEDS ORDERED: ACETAMINOPHEN INJECTION 100 ML ONE (07:26)
[2024-10-03] MEDS ORDERED: BUPIVACAINE HCL/PF 0.5% (5MG/ML) 10 ML VIAL ONE (07:26)
[2024-10-03] MEDS ORDERED: PROPOFOL 20 ML ONE ×5 (07:29→11:02)
[2024-10-03] MEDS ORDERED: MIDAZOLAM HCL 2 MG/2 ML SINGLE DOSE VIAL ONE ×5 (07:29→09:43)
[2024-10-03] MEDS ORDERED: VANCOMYCIN 1,000 MG VIAL (RESTRICTED TO ID ONLY) ONE ×2 (07:40→10:27)
[2024-10-03] MEDS ORDERED: ONDANSETRON 4 MG/2 ML VIAL IVPUSH PRN ×2 (08:06→10:26)
[2024-10-03] MEDS ORDERED: oxyCODONE HCL 5 MG TABLET PO PRN (08:06)
[2024-10-03] MEDS ORDERED: LACTATED RINGERS SOLUTION 1,000 ML IV SCH (08:15)
[2024-10-03] MEDS ORDERED: TRANEXAMIC ACID 1000 MG/10 ML VIAL ONE (09:06)
[2024-10-03] MEDS ORDERED: ceFAZolin SODIUM 1 GM VIAL ONE (09:06)
[2024-10-03] MEDS ORDERED: DEXAMETHASONE SOD PHOSPHATE 4 MG/1 ML VIAL ONE ×2 (09:09)
[2024-10-03] MEDS ORDERED: DEXMEDETOMIDINE HCL 200 MCG/2 ML IVPB ONE (09:44)
[2024-10-03] MEDS ORDERED: BUPIVICAINE 0.25%/MORPH PF/KETOROLAC - 51ML DISP.SYRINGE IA ONE (09:47)
[2024-10-03] MEDS ORDERED: MAG HYDROX/AL HYDROX/SIMETH 30 ML UNIT-DOSE CUP PO PRN (10:26)
[2024-10-03] MEDS: VANCOMYCIN 1,000 MG VIAL (RESTRICTED TO ID ONLY) IVPB ONE (10:28)
[2024-10-03] MEDS: BUPIVICAINE 0.25%/MORPH PF/KETOROLAC - 51ML DISP.SYRINGE IA ONE (10:43)
[2024-10-03] MEDS ORDERED: FENTANYL CITRATE/PF 50 MCG/ML VIAL ONE (11:42)
[2024-10-03] MEDS ORDERED: HYDROmorphone HCL/PF 1 MG/ML VIAL ONE ×2 (11:54→12:16)
[2024-10-03] MEDS: HYDROmorphone HCL/PF 1 MG/ML VIAL IVPUSH PRN (11:58)
[2024-10-03 12:25] VITALS: RESP 18
[2024-10-03] MEDS: oxyCODONE HCL 5 MG TABLET PO PRN (13:13)
[2024-10-03] MEDS: CEFAZOLIN 2 GM/D5W 2 GM/50 ML ML IVPB SCH (16:22)
[2024-10-03] MEDS: ACETAMINOPHEN 500 MG TABLET (FP) PO SCH (16:23)
[2024-10-03] MEDS: GABAPENTIN 300 MG CAPSULE PO SCH (21:01)
[2024-10-03] MEDS: SENNOSIDES/DOCUSATE COMBO (SENNA PLUS) TABLET (UD) PO SCH (21:02)
[2024-10-03] MEDS: MELATONIN 5 MG TABLETS PO PRN (22:24)
[2024-10-04] MEDS: LACTATED RINGERS SOLUTION 1,000 ML IV SCH (03:42)
[2024-10-04 08:18] LABS: HEMOGLOBIN 10.5 G/dL (10.7-15.3); MCH 28.7 pg (25.7-33.7); MCHC 32.9 g/dl (32.0-36.0); MEAN CELL VOLUME 87.3 fl (80-96); MEAN PLT VOLUME 11.4 fl (7.5-11.1); PLATELET COUNT 165.5 10^3/uL (134-434); RBC 3.66 10^6/uL (3.60-5.2); RDW 15.9 % (11.6-15.6); WHITE BLOOD COUNT 12.5 10^3/uL (4.0-10.8)
[2024-10-04 09:38] LABS: CALCIUM 9.6 mg/dl (8.5-10.1); CREATININE 0.6 mg/dl (0.6-1.3)
[2024-10-04] MEDS: amLODIPine BESYLATE 10 MG TABLET (FP) PO SCH (09:38)
[2024-10-04] MEDS: ROSUVASTATIN CA 20 MG TABLET PO SCH (09:38)
[2024-10-04] MEDS: LOSARTAN POTASSIUM 50 MG TABLET PO SCH (09:38)
[2024-10-04] MEDS: ASPIRIN COATED 81 MG TABLET.EC PO SCH (09:38)
[2024-10-04] MEDS: PANTOPRAZOLE 40 MG TABLET PO SCH (09:39)
[2024-10-04] MEDS: MULTIVITAMINS (DAILY MVI) TABLET (FP) PO SCH (09:39)
[2024-10-04] MEDS ORDERED: POTASSIUM CHLORIDE TABS 20 MEQ TABLET.ER (FP) PO SCH (10:00)
[2024-10-04] MEDS ORDERED: LOSARTAN POTASSIUM 50 MG TABLET PO SCH (10:00)
[2024-10-04] MEDS ORDERED: amLODIPine BESYLATE 10 MG TABLET (FP) PO SCH (10:00)
[2024-10-04 11:45] VITALS: BP 130/82; PULSE 85; TEMP 98.3
== END 2024-10-04 12:01 | disposition home or self-care (01) ==
LOC: FASUSAT 06:02 → SUATTDRO 06:02 → FM/S 12:48 → FASUSAT 10-04 12:01
PROVIDERS: ATTEND Internal Medicine
PROC: 8E0Y0CZ Robotic Assisted Procedure of Lower Extremity, Open Approach (ICD-10-PCS; 2024-10-03)
PROC: 0SR90JA Replacement of Right Hip Joint with Synthetic Substitute, Uncemented, Open Approach (ICD-10-PCS; principal; 2024-10-03 09:09)
DX: M16.11 Unilateral primary osteoarthritis, right hip (principal)
CPT/HCPCS: 20985; 27130; C1776; S2900; 36415; 73502-TC-RT-FY; 80048; 82962; 85027; 88305-TC; 88311-TC; 94760; 97010-GP; 97116-GP; 97162-GP; C1889; J0131